=== PATIENT | male | born 1970 | race African-American/Black ===

== ENCOUNTER 2020-01-03 12:16 | Inpatient (IN) | payer MEDICAID ==
[~2020-01-03] VITALS: Ht 172.7 cm; Wt 87.5 kg
[2020-01-03 13:43] LABS: CLARITY URINE CLEAR (CLEAR); COLOR URINE YELLOW (YELLOW); KETONES URINE NEGATIVE (NEGATIVE); LEUKOCYTE ESTERASE URINE NEGATIVE (NEGATIVE); NITRITE URINE NEGATIVE (NEGATIVE); OCCULT BLOOD URINE 2+ (NEGATIVE); PH URINE 7.5 (4.5-8.0); PROTEIN URINE 2+ (NEGATIVE); SPECIFIC GRAVITY URINE 1.017 (1.005-1.030); UROBILINOGEN URINE 0.2 E.U./dL (0.2-1.0)
[2020-01-03 13:45] LABS: BASOPHILS % 0.5 % (0.0-2.0); EOSINOPHILS % 0.5 % (0.0-5.0); HEMATOCRIT. 44.9 % (42.0-52.0); HEMOGLOBIN. 14.9 g/dL (14.0-18.0); LYMPHOCYTES % 24.6 % (20.0-50.0); MEAN CORPUSCULAR HEMOGLOBIN 31.7 pg (28.0-32.0); MEAN CORPUSCULAR VOLUME 95.4 fL (80.0-94.0); MEAN PLATELET VOLUME 9.7 fl (7.4-10.4); MONOCYTES % 10.5 % (2.0-8.0); NEUTROPHILS % 63.9 % (40.0-76.0); PLATELET 112 x1000/uL (130-400); RED BLOOD CELL COUNT 4.71 mill/uL (4.7-6.1); RED CELL DISTRIBUTION WIDTH 14.2 % (11.6-14.6)
[2020-01-03 13:52] LABS: CHLORIDE 108 mEq/L (98-107)
[2020-01-03 13:55] LABS: PROTHROMBIN TIME 10.9 sec (9.6-11.0)
[2020-01-03 13:57] LABS: ETHANOL BLOOD < 10 mg/dL
[2020-01-03 13:59] LABS: LDL CHOLESTEROL 97 mg/dL (5-100)
[2020-01-03 14:10] LABS: *AMPHETAMINES SCREEN URINE NEGATIVE (NEGATIVE); *BARBITURATES SCREEN URINE NEGATIVE (NEGATIVE); *BENZODIAZEPINES SCREEN URINE NEGATIVE (NEGATIVE); *COCAINE SCREEN URINE NEGATIVE (NEGATIVE)
[2020-01-03 14:11] LABS: CANNABINOID URINE SCREEN NEGATIVE (NEGATIVE); METHADONE URINE SCREEN NEGATIVE (NEGATIVE); OPIATES URINE SCREEN NEGATIVE (NEGATIVE); PHENCYCLIDINE URINE SCREEN NEGATIVE (NEGATIVE)
[2020-01-03] MEDS ORDERED: CLONIDINE 0.2MG TABLET PO ONE ×2 (16:30→17:45)
[2020-01-03] MEDS: HYDRALAZINE HCL 50MG TABLET PO SCH (20:41)
[2020-01-03] MEDS: AMLODIPINE 10MG TABLET PO SCH (20:45)
[2020-01-03 22:00] VITALS: BP 192/114
[2020-01-03 22:14] LABS: INR 1.1; PROTHROMBIN TIME 11.3 sec (9.6-11.0)
[2020-01-03] MEDS ORDERED: ACETAMINOPHEN 325MG TABLET PO PRN (23:15)
[2020-01-03 23:37] LABS: BG BASE EXCESS -0.8 mmol/L (-2.0-2.0); BG CARBOXYHEMOGLOBIN 0.5 % (0.5-1.5); BG DEOXYHEMOGLOBIN 4.4 % (0.0-5.0); BG FRACTION INSPIRED OXYGEN 21; BG HCO3 ACT 23.7 mmol/L (22.0-26.0); BG METHEMOGLOBIN 0.2 % (0.0-1.5); BG OXYGEN SATURATION 95.6 % (92.0-98.5); BG OXYHEMOGLOBIN 94.9 % (94.0-97.0); BG PCO2 38.9 mmHg (35.0-45.0); BG PH 7.403 (7.350-7.450); BG PO2 80.9 mmHg (75.0-100.0); BG SAMPLE SITE RIGHT RADIAL; BG TOTAL HEMOGLOBIN 14.5 g/dL (12.0-18.0); BG VENT MODE ROOM AIR
[2020-01-03] MEDS: BENAZEPRIL 10MG TABLET PO SCH (23:37)
[2020-01-04 01:17] VITALS: BP 192/114
[2020-01-04 04:00] VITALS: BP 123/82
[2020-01-04] MEDS: BLOOD SUGAR DIAGNOSTIC STRIP TEST SCH ×4 (05:30→21:17)
[2020-01-04] MEDS: HYDRALAZINE HCL 50MG TABLET PO SCH ×3 (05:31→21:02)
[2020-01-04 08:00] VITALS: BP 117/61
[2020-01-04] MEDS: BENAZEPRIL 10MG TABLET PO SCH (08:52)
[2020-01-04] MEDS: AMLODIPINE 10MG TABLET PO SCH (08:52)
[2020-01-04] MEDS: ASPIRIN 81MG TABLET PO SCH (08:52)
[2020-01-04 11:40] VITALS: BP 99/65
[2020-01-04] MEDS: ENOXAPARIN 40MG/0.4ML SYR SUBCUT SCH (12:57)
[2020-01-04] MEDS ORDERED: LEVE10006 MT (15:03)
[2020-01-04] MEDS ORDERED: DIVA-75 MT (15:03)
[2020-01-04] MEDS ORDERED: EMTR1TAB12 MT (15:03)
[2020-01-04] MEDS ORDERED: METO25TA6 MT (15:03)
[2020-01-04] MEDS ORDERED: LACO200T2 MT (15:03)
[2020-01-04 16:00] VITALS: BP 119/81
[2020-01-04] MEDS ORDERED: NON FORMULARY PATIENT HOME MED XX SCH ×3 (17:45)
[2020-01-04] MEDS: DIVALPROEX SODIUM 500MG DR TABLET PO SCH (18:33)
[2020-01-04] MEDS: LEVETIRACETAM 500MG TABLET PO SCH (18:47)
[2020-01-04 19:58] LABS: BASOPHILS % 0.6 % (0.0-2.0); EOSINOPHILS % 0.4 % (0.0-5.0); HEMATOCRIT. 42.5 % (42.0-52.0); HEMOGLOBIN. 14.3 g/dL (14.0-18.0); LYMPHOCYTES % 45.1 % (20.0-50.0); MEAN CORPUSCULAR VOLUME 95.2 fL (80.0-94.0); MEAN PLATELET VOLUME 9.4 fl (7.4-10.4); MONOCYTES % 14.4 % (2.0-8.0); NEUTROPHILS % 39.5 % (40.0-76.0); PLATELET 171 x1000/uL (130-400); RED BLOOD CELL COUNT 4.46 mill/uL (4.7-6.1); RED CELL DISTRIBUTION WIDTH 14.5 % (11.6-14.6)
[2020-01-04 20:00] VITALS: BP 126/85
[2020-01-04 20:23] LABS: CHLORIDE 106 mEq/L (98-107)
[2020-01-04 20:31] LABS: LDL CHOLESTEROL 89 mg/dL (5-100)
[2020-01-04 20:33] LABS: HDL CHOLESTEROL 47 mg/dL (40-59)
[2020-01-04] MEDS: ATORVASTATIN CALCIUM 10MG TABLET PO SCH (21:01)
[2020-01-04] MEDS: METOPROLOL TARTRATE 25MG TABLET PO SCH (21:02)
[2020-01-04] MEDS: LACOSAMIDE 100 MG TABLET PO SCH (21:09)
[2020-01-05] VITALS: BP 104/65
[2020-01-05 04:00] VITALS: BP 120/81
[2020-01-05] MEDS: HYDRALAZINE HCL 50MG TABLET PO SCH ×3 (05:31→21:08)
[2020-01-05] MEDS: BLOOD SUGAR DIAGNOSTIC STRIP TEST SCH ×4 (07:33→21:04)
[2020-01-05 08:00] VITALS: BP 134/87
[2020-01-05] MEDS: DIVALPROEX SODIUM 500MG DR TABLET PO SCH ×2 (09:03→17:40)
[2020-01-05] MEDS: AMLODIPINE 10MG TABLET PO SCH (09:03)
[2020-01-05] MEDS: LEVETIRACETAM 500MG TABLET PO SCH (09:04)
[2020-01-05] MEDS: METOPROLOL TARTRATE 25MG TABLET PO SCH ×2 (09:06→21:09)
[2020-01-05] MEDS: BENAZEPRIL 10MG TABLET PO SCH (09:06)
[2020-01-05] MEDS: ASPIRIN 81MG TABLET PO SCH (09:07)
[2020-01-05] MEDS: LACOSAMIDE 100 MG TABLET PO SCH ×2 (09:07→17:40)
[2020-01-05] MEDS: ENOXAPARIN 40MG/0.4ML SYR SUBCUT SCH (09:08)
[2020-01-05 11:05] LABS: BG BASE EXCESS -0.8 mmol/L (-2.0-2.0); BG CARBOXYHEMOGLOBIN 0.6 % (0.5-1.5); BG DEOXYHEMOGLOBIN 3.6 % (0.0-5.0); BG FRACTION INSPIRED OXYGEN 21; BG HCO3 ACT 23.5 mmol/L (22.0-26.0); BG METHEMOGLOBIN 0.3 % (0.0-1.5); BG OXYGEN SATURATION 96.4 % (92.0-98.5); BG OXYHEMOGLOBIN 95.5 % (94.0-97.0); BG PCO2 38.1 mmHg (35.0-45.0); BG PH 7.408 (7.350-7.450); BG PO2 84.7 mmHg (75.0-100.0); BG SAMPLE SITE RIGHT RADIAL; BG TOTAL HEMOGLOBIN 14.9 g/dL (12.0-18.0); BG VENT MODE ROOM AIR
[2020-01-05 12:00] VITALS: BP 139/98
[2020-01-05] MEDS ORDERED: SODIUM CHLORIDE 0.9% 1000ML BAG (SEPSIS BOLUS) IV NR (12:15)
[2020-01-05] MEDS: SODIUM CHLORIDE 0.9% 1,000 ML IV SCH (14:51)
[2020-01-05 16:00] VITALS: BP 133/93
[2020-01-05 20:00] VITALS: BP 149/87
[2020-01-05] MEDS: ATORVASTATIN CALCIUM 10MG TABLET PO SCH (21:08)
[2020-01-06] VITALS: BP 109/67
[2020-01-06 04:00] VITALS: BP 107/74
[2020-01-06] MEDS: SODIUM CHLORIDE 0.9% 1,000 ML IV SCH (04:43)
[2020-01-06] MEDS: HYDRALAZINE HCL 50MG TABLET PO SCH ×3 (06:40→21:04)
[2020-01-06] MEDS: BLOOD SUGAR DIAGNOSTIC STRIP TEST SCH ×4 (06:50→21:00)
[2020-01-06 08:00] VITALS: BP 139/80
[2020-01-06] MEDS: LACOSAMIDE 100 MG TABLET PO SCH ×2 (08:11→18:06)
[2020-01-06] MEDS: ASPIRIN 81MG TABLET PO SCH (08:11)
[2020-01-06] MEDS: DIVALPROEX SODIUM 500MG DR TABLET PO SCH ×2 (08:12→18:05)
[2020-01-06] MEDS: LEVETIRACETAM 500MG TABLET PO SCH (08:12)
[2020-01-06] MEDS: ENOXAPARIN 40MG/0.4ML SYR SUBCUT SCH (08:13)
[2020-01-06] MEDS: BENAZEPRIL 10MG TABLET PO SCH (08:33)
[2020-01-06] MEDS: METOPROLOL TARTRATE 25MG TABLET PO SCH ×2 (08:34→21:03)
[2020-01-06] MEDS: AMLODIPINE 10MG TABLET PO SCH (08:35)
[2020-01-06 09:35] LABS: BG CARBOXYHEMOGLOBIN 0.5 % (0.5-1.5); BG DEOXYHEMOGLOBIN 2.3 % (0.0-5.0); BG FRACTION INSPIRED OXYGEN 21; BG HCO3 ACT 25.9 mmol/L (22.0-26.0); BG METHEMOGLOBIN 0.2 % (0.0-1.5); BG OXYGEN SATURATION 97.7 % (92.0-98.5); BG PCO2 42.4 mmHg (35.0-45.0); BG PH 7.404 (7.350-7.450); BG PO2 101.1 mmHg (75.0-100.0); BG SAMPLE SITE RIGHT RADIAL; BG VENT MODE ROOM AIR
[2020-01-06 12:00] VITALS: BP 135/89
[2020-01-06 16:00] VITALS: BP 153/102
[2020-01-06 20:25] VITALS: BP 143/92
[2020-01-06] MEDS: ATORVASTATIN CALCIUM 10MG TABLET PO SCH (21:03)
[2020-01-07 00:37] VITALS: BP 119/76
[2020-01-07 04:44] VITALS: BP 114/74
[2020-01-07] MEDS: HYDRALAZINE HCL 50MG TABLET PO SCH ×2 (06:21→13:13)
[2020-01-07 08:11] VITALS: BP 158/106
[2020-01-07] MEDS: METOPROLOL TARTRATE 25MG TABLET PO SCH (08:42)
[2020-01-07] MEDS: BENAZEPRIL 10MG TABLET PO SCH (08:42)
[2020-01-07] MEDS: DIVALPROEX SODIUM 500MG DR TABLET PO SCH (08:42)
[2020-01-07] MEDS: LACOSAMIDE 100 MG TABLET PO SCH (08:42)
[2020-01-07] MEDS: LEVETIRACETAM 500MG TABLET PO SCH (08:42)
[2020-01-07] MEDS: ASPIRIN 81MG TABLET PO SCH (08:42)
[2020-01-07] MEDS: ENOXAPARIN 40MG/0.4ML SYR SUBCUT SCH (08:43)
[2020-01-07] MEDS: AMLODIPINE 10MG TABLET PO SCH (08:46)
[2020-01-07 12:00] VITALS: BP 141/101
[2020-01-07] MEDS: BLOOD SUGAR DIAGNOSTIC STRIP TEST SCH (12:21)
[2020-01-07 13:24] VITALS: BP 141/101
== END 2020-01-07 14:54 | disposition home or self-care (01) | DRG 52 ==
LOC: ER 12:37 → EDBEDREQ 16:57 → 7EST 17:50 → EDBEDREQTM 17:54 → EDBEDREQSVC 17:54 → EDBEDREQ 17:54 → ENRESERV 21:06 → 7EST 23:39 → 5WST 01-04 16:19
PROVIDERS: ADMIT Family Medicine; ATTEND Family Medicine
PROC: 4A10X4Z Monitoring of Central Nervous Electrical Activity, External Approach (ICD-10-PCS; principal; 2020-01-05)
DX: G93.41 Metabolic encephalopathy (principal); I11.9 Hypertensive heart disease without heart failure; N17.0 Acute kidney failure with tubular necrosis; G40.909 Epilepsy, unspecified, not intractable, without status epilepticus; F03.90 Unspecified dementia, unspecified severity, without behavioral disturbance, psychotic disturbance, mood disturbance, and anxiety; Z20.828 Contact with and (suspected) exposure to other viral communicable diseases; I67.82 Cerebral ischemia; R47.01 Aphasia; I69.398 Other sequelae of cerebral infarction
CPT/HCPCS: 36415; 36600; 70551; 71045; 76770; 80048; 80053; 80061; 80165; 80305; 80320; 80339; 81003; 82375; 82542; 82805; 82962; 83036; 83721; 84484; 85025; 85384; 87635; 92610; 93005; 93306; 93880; 95816; 97162; 97166; 97530; 97535; 99291; A4565; J1650; J7030; G0480